=== PATIENT | female | born 1955 | race Caucasian/White ===

== ENCOUNTER 2023-06-09 07:59 | Day surgery (SDC) | payer OTHER, MEDICARE ==
[2023-05-29 15:14] VITALS: BMI 17.4
[2023-06-09 10:01] VITALS: RESP 16; TEMP 97.8
[2023-06-09 10:17] VITALS: BP 112/59; PULSE 73
== END 2023-06-09 10:18 | disposition home or self-care (01) ==
LOC: FASU-ENDO 07:59
PROVIDERS: ATTEND Internal Medicine Gastroenterology
PROC: 0DJD8ZZ Inspection of Lower Intestinal Tract, Via Natural or Artificial Opening Endoscopic (ICD-10-PCS; principal; 2023-06-09 09:37)
DX: Z12.11 Encounter for screening for malignant neoplasm of colon (principal); Z80.0 Family history of malignant neoplasm of digestive organs; K57.30 Diverticulosis of large intestine without perforation or abscess without bleeding